=== PATIENT | male | born 1945 | race Caucasian/White ===

== ENCOUNTER → 2016-12-11 | Outpatient (CLI) | payer MEDICARE ==
[~2016-12-11] MED LIST: AMLODIPINE BESYL5 MG PO; ARICEPT PO; ASPIRIN81 M1 PO; ASPIRIN81 M2 PO; BUDESONIDE0.5 MG/2 M NEB; BUMETANIDE1 MG PO; BUMEX1 MG PO; BYSTOLIC10 MG PO; BYSTOLIC5 MG PO; CARDIZEM; CARDIZEM CD; CENTRUM CARDIO1 TAB PO; CLARITIN10 MG PO; CLEOCIN HCL300 M1 PO; COMBIVENT INH14.7 GM IN; COZAAR100 MG PO; CRESTOR; CRESTOR PO; DIOVAN; DIOVAN HCT 160/1 TAB; DIOVAN320 MG PO; DITROPAN; DITROPAN XL PO; EFFEXOR75 MG PO; ENTOCORT EC3 MG PO; FIBER LAX625 MG PO; FIBERCON625 MG PO; FLAX SEED OIL1000 M1 PO; FLONASE16 GM; FOLIC ACID PO; GEODAN; GLUCO; GLUCOSAMINE; GLUCOSAMINE CHO1 CA1 PO; GLUCOSAMINE CHO1 CA2 PO; GLUCOSAMINE HC500 MG PO; LAMICTAL PO; LAMICTAL100 MG PO; LAMICTAL150 MG PO; LIPITOR40 MG PO; LOVAZA1 G PO; MULTIPLE VITAMI1 T11 PO; NABUMETONE PO; NAMENDA10 MG PO; NASONEX17 GM; NORVASC PO; NUVIGIL200 MG PO; NUVIGIL250 MG PO; OMEPRAZOLE40 M1 PO; PERFOROMIS20 MCG/2 M NEB; PRILOSEC PO; PROAIR HFA8.5 GM IH; PROAIR HFA8.5 GM INH; PROTONIX; PROZAC; PROZAC40 MG PO; PULMICORT0.5 MG/2 M NEB; RELAFEN500 M1 PO; REQUIP1 MG; SINGULAIR; SINGULAIR PO; SPIRIVA18 MCG INH; SPRYCEL100 MG PO; TESTIM 1% TOP; TESTIN; TOPROL XL; TUDORZA PRESS400 MCG IH; ULORIC40 MG PO; VALTURNA 300-321 TAB PO; VIT B-12 PO; VITAMIN D50000 UNIT; VITAMIN D50000 UNIT PO; VITAMIN E400 UNI1 PO; ZANTAC150 MG PO; ZEGERID 40 MG C1 CAP PO; ZYPREXA
--- NOTE | ~2016-12-11 | CR124 ---
[facility] A Service of [facility] & [facility] RADIOLOGY TEXT RESULTS PATIENT: DEV MALONE LOCATION: [facility] : 49 UNIT #: [id number] AGE: [address]: Liz Alexis MD SEX: M ORDER DR: [id number] [facility] [address] [place], [place] [address] [id number] O MR#: [id number] Acc #: [id number] NAME: DEV MALONE : 1945 SEX: M STUDY DATE/TIME: 12/11/2016 13:34 UNIT: [facility] ROOM: STUDY DESCRIPTION: CR Foot 2 Views Rt Attending Physician: Liz Alexis M.D. Referring Physician: Liz Alexis M.D. Ordering Physician: Liz Alexis M.D. Primary Care Physician: Liz Alexis M.D. MEDICAL IMAGING REPORT This report is preliminary unless electronic signature is present EXAM Right foot HISTORY Right foot pain laterally toward the heel for the past several months. TECHNIQUE 3 views of the foot were obtained. FINDINGS There is an old healed fracture of the fifth proximal phalanx. There is no evidence of acute fracture, bone destruction, or erosion. No radiodense foreign bodies are seen. IMPRESSION Healed fracture of the fifth proximal phalanx. Otherwise, negative. Dictated by... David Pelayo M.D. THIS IS AN ELECTRONICALLY VERIFIED REPORT David Pelayo M.D. at 12/13/2016 3:40 PM MORIAH/aaron TD: 12/12/2016 11:06 JOB #: [id number] MEDICAL IMAGING REPORT Page 1 of 1 COPY
== END | disposition home or self-care (01) ==
LOC: CRAD 13:08
DX: M79.671 Pain in right foot (principal); Z87.81 Personal history of (healed) traumatic fracture
CPT/HCPCS: 73620

== ENCOUNTER → 2017-01-02 | Outpatient (CLI) | payer MEDICARE ==
--- NOTE | ~2017-01-02 | CR63 ---
[facility] A Service of [facility] & [facility] RADIOLOGY TEXT RESULTS PATIENT: DEV MALONE LOCATION: [facility] : 49 UNIT #: [id number] AGE: [address]: Liz Alexis MD SEX: M ORDER DR: [id number] [facility] [address] [place], [place] [address] [id number] O MR#: [id number] Acc #: [id number] NAME: DEV MALONE. : 1945 SEX: M STUDY DATE/TIME: 01/02/2017 11:27 UNIT: [facility] ROOM: STUDY DESCRIPTION: CR Chest 2 View Attending Physician: Liz Alexis M.D. Referring Physician: Liz Alexis M.D. Ordering Physician: Liz Alexis M.D. Primary Care Physician: Liz Alexis M.D. MEDICAL IMAGING REPORT This report is preliminary unless electronic signature is present EXAM Chest 01/02/2017 HISTORY 71-year-old male patient history of COPD with acute exacerbation. Cough, short of air, congestion. COMPARISON Chest 07/03/2016. FINDINGS PA and lateral chest demonstrates normal stable heart size. Lungs are hyperinflated with flattened diaphragms. I see no infiltrates and no effusions. IMPRESSION Generalized pulmonary hyperinflation consistent with stable COPD. No acute chest finding. Dictated by... Raoul Forrest M.D. THIS IS AN ELECTRONICALLY VERIFIED REPORT Raoul Forrest M.D. at 01/02/2017 3:32 PM DAVE/quoc TD: 01/02/2017 14:03 JOB #: [id number] MEDICAL IMAGING REPORT Page 1 of 1 COPY
== END | disposition home or self-care (01) ==
LOC: CRAD 11:01
DX: J44.1 Chronic obstructive pulmonary disease with (acute) exacerbation (principal); R91.8 Other nonspecific abnormal finding of lung field
CPT/HCPCS: 71020